=== PATIENT | male | born 2000 | race Caucasian/White ===

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

== ENCOUNTER 2020-05-15 21:59 | Emergency (ER) | payer SELFPAY ==
[2020-05-15 22:00] VITALS: BP 125/82; PULSE 64; RESP 16; TEMP 36.9; O2SAT 97; BMI 25.0
--- NOTE | 2020-05-15 22:22 | HMH.EDEYEP ---
ED Disposition Clinical Impression: Penetrating eye injury of left eye Qualifiers: Encounter type: initial encounter Qualified Code(s): S05.62XA - Penetrating wound without foreign body of left eyeball, initial encounter Disposition: Xfer Short-Term Hosp Condition on Discharge: Good Instructions: DI for Eye Pain Additional Instructions: go to now and remain npo Referrals: Jag Tejeda MD [Primary Care Provider] - - Critical Care Critical Care Time: No Attestation: On 05/15/20, the high probability of a clinically significant, sudden or life threatening deterioration of the following system(s) required my full and direct attention, intervention and personal management. The time I documented below is in addition to time spent performing reported procedures but includes the following listed in this critical care notation. Medical Decision Making - Medical Records Medical records reviewed: Yes: I reviewed the patient's medical records. - Quentin Inquiry Pt receiving controlled substance: No Vital Signs: 05/15/20 22:00 05/15/20 22:44 Temperature 98.4 F Temperature Source Oral Pulse Rate [Left Radial] 64 66 Respiratory Rate 16 18 Blood Pressure [Right Arm] 125/82 129/79 Blood Pressure Mean [Right Arm] 96 95 Blood Pressure Source [Right Arm] Automatic Cuff Blood Pressure Position [Right Arm] Sitting 02 Sat by Pulse Oximetry 97 99 Oxygen Delivery Method Room Air Room Air Orders (Tests/Meds): ED MEDICATIONS Discontinued Medications Generic Name Dose Route Start Last Admin Trade Name Freq PRN Reason Stop Dose Admin Tetracaine HCl 0 ml 05/15/20 23:16 05/15/20 23:17 Tetracaine 0.5% Ophth Solution 15ml OP 05/15/20 23:17 3 drop ONCE ONE Administration ORDERS Category Date Time Status CT orbit BI wo con Stat Cat Scan 05/15/20 22:57 Taken Orbit XR left [XR orbit bilateral min 4V] Stat Exams 05/15/20 22:24 Taken - Radiology Data #1 Image(s): Other (orbit-fb ) Image Reviewed: Yes I reviewed the patient's radiology image Preliminary Findings: Abnormal (possible fb ) - CT Data CT Scan: Other (orbit) Time Received: 00:[address] Reviewed: Yes: I have viewed the radiologist's interpretation Preliminary Findings: Abnormal (penetration fb lt eye) - Physician Consults Physician Consulted: - optho- dr rodrigues Reason -: Transfer to another facilty Eye Problem HPI - General Chief complaint: Eye Problems Stated complaint: AO 0630 @home FB(Metal) in L Eye Time Seen by Provider: 05/15/20 22:23 Mode of Arrival: Ambulatory Source of Information: Patient, Medical Record Limitations: No Limitations Description of Symptoms (Recalled from ER Triage Doc. by RN): pt stated he was working on a mower and thinks a metal flake fell in his eye. - History of Present Illness HPI Narrative: working at home and fb flew into lt eye - no goggles - no sig pain but blurred vision and feels like he can see drops - no contacts and healthy - concerned about fb - MD chief complaint: foreign body Onset (ago): hour(s) Onset description: sudden Duration: constant Location: left eye Eye Symptoms: foreign body sensation, blurry vision Place: home Mechanism: occurred while hammering/grinding Severity: moderate Associated symptoms: none Treatments Prior to Arrival: none - Related Data Patient tetanus UTD: Yes Home Medications Medication Instructions Recorded Confirmed No Known Home Medications 12/29/17 12/29/17 Allergies Allergy/AdvReac Type Severity Reaction Status Date / Time cefprozil [From CEFZIL] Allergy Unknown Verified 01/04/18 11:08 [facility] History - Hepatitis A Screen Drug use history?: No High risk sexual behaviors?: No History of sexually transmitted infection?: No Currently employed?: No Childcare worker?: No Do you have indoor plumbing?: Yes Do you have electricity?: Yes Attestation statement:: This patient has been screened for Hepatitis A risk facto
--- NOTE | 2020-05-15 22:24 | XR_ITS ---
PROCEDURE: XR ORBIT BILATERAL MIN 4V CLINICAL INDICATION: possible fb Foreign body evaluation, metal fragments COMPARISON: CT ORBIT BI WO CON from 05/15/2020 FINDINGS: On the right side there 3 small areas of increased density suspicious for metallic fragments the largest measuring nearly 3 mm. On the left side there is a small metallic fragment noted in the medial aspect of the orbital area measuring 1-2 mm. There is mild mucosal thickening of the maxillary sinuses IMPRESSION: Bilateral ocular metallic fragments Dictated by: Dwayne Knox MD 05/16/2020 07:50 Electronically signed by Dwayne Knox MD in [place] 05/16/2020 07:50
--- NOTE | 2020-05-15 22:28 | PC.NURSE ---
spoke with Dr. Degroot
[2020-05-15 22:44] VITALS: BP 129/79; PULSE 66; RESP 18; O2SAT 99
--- NOTE | 2020-05-15 22:57 | CT_ITS ---
PROCEDURE: CT ORBIT BI WO CON CLINICAL HISTORY: foreign body left eye Foreign body evaluation, injury with pain, metal fragment in, check position of metal fragment COMPARISON: No exams were available for comparison TECHNIQUE: Axial images obtained with sagittal and coronal reformats. All CT scans at the facility use one or more dose reduction, viz: automated exposure control, ma/kV adjustment per patient size (including targeted exams where dose is matched to indication, i.e. head), or iterative reconstruction technique. FINDINGS: There is a 2 mm calcific density at the medial margin of the preseptal soft tissues of the right orbit which may be related to prior trauma or inflammatory process or foreign body.. There is a 3 mm metallic foreign body located in the posterior chamber of the left ocular globe with trace amount of intra ocular air in the anterior superior aspect of the posterior chamber consistent with patient's history of acute penetrating trauma. There is slight heterogeneous density across the ocular globes on both sides which may be related to streak artifact without definite evidence of the tree is hemorrhage. No hyphema. Good position of the lens. Mucosal thickening involves the ethmoid sinuses and mild mucosal thickening involves the maxillary sinuses. IMPRESSION: Small right a metallic foreign body in the posterior chamber of the left ocular globe at 3 mm with a small amount air in the posterior chamber consistent with history of acute penetrating injury. Please see above for detail Dictated by: Dwayne Knox MD 05/16/2020 08:23 Electronically signed by Dwayne Knox MD in [place] 05/16/2020 08:23
--- NOTE | 2020-05-15 23:56 | PC.NURSE ---
speaking with ophthalmology at
--- NOTE | 2020-05-15 23:57 | PC.NURSE ---
pt accepted to [facility]
[2020-05-16 00:05] VITALS: BP 147/99; PULSE 66; RESP 16; O2SAT 98
[2020-05-16 00:12] VITALS: BP 147/101; PULSE 66; RESP 16; TEMP 36.9; O2SAT 100
== END 2020-05-16 00:15 | disposition short-term general hospital (02) ==
PROVIDERS: Emergency Provider Emergency Medicine; PCP Internal Medicine Adolescent Medicine
DX: S05.62XA Penetrating wound without foreign body of left eyeball, initial encounter (principal); W45.8XXA Other foreign body or object entering through skin, initial encounter; W27.8XXA Contact with other nonpowered hand tool, initial encounter; Y92.73 Farm field as the place of occurrence of the external cause; F17.210 Nicotine dependence, cigarettes, uncomplicated; Z88.1 Allergy status to other antibiotic agents; Z90.09 Acquired absence of other part of head and neck
CPT/HCPCS: 70200; 70480; 99284

== ENCOUNTER 2020-05-23 02:01 | Emergency (ER) | payer MEDICAID, SELFPAY ==
[2020-05-23 02:13] VITALS: BP 126/84; PULSE 60; RESP 16; TEMP 36.8; O2SAT 100; BMI 20.9
[2020-05-23 02:39] VITALS: BP 119/77; PULSE 64; RESP 16; O2SAT 99
[2020-05-23 03:31] VITALS: BP 0/0; PULSE 0; RESP 0; TEMP -17.7; TEMP 0; O2SAT 0
== END 2020-05-23 03:33 | disposition left against medical advice (07) ==
LOC: ER 02:05
PROVIDERS: Emergency Provider Emergency Medicine; PCP Internal Medicine Adolescent Medicine
DX: Z53.21 Procedure and treatment not carried out due to patient leaving prior to being seen by health care provider (principal); H57.12 Ocular pain, left eye
CPT/HCPCS: 99211

== ENCOUNTER 2021-09-04 14:16 | Emergency (ER) | payer MEDICAID, SELFPAY ==
[2021-09-04 15:51] VITALS: BP 0/0; PULSE 0; RESP 0; TEMP -17.7; TEMP 0
== END 2021-09-04 15:52 | disposition left against medical advice (07) ==
LOC: UTC 14:24
PROVIDERS: Emergency Provider Nurse Practitioner; PCP Internal Medicine Adolescent Medicine
DX: Z53.21 Procedure and treatment not carried out due to patient leaving prior to being seen by health care provider (principal)

== ENCOUNTER 2021-09-04 21:19 | Emergency (ER) | payer SELFPAY ==
[2021-09-04 21:20] VITALS: BP 144/92; PULSE 108; RESP 16; TEMP 38.1; O2SAT 98; BMI 25.0
--- NOTE | 2021-09-04 21:39 | CT_ITS ---
PROCEDURE INFORMATION: Exam: CT Chest With Contrast; Diagnostic Exam date and time: 09/04/2021 9:39 PM Age: 21 years old Clinical indication: Pain; Patient HX: Air bag deployed while working on car 5 days ago; Additional info: A/o TECHNIQUE: Imaging protocol: Diagnostic computed tomography of the chest with contrast. 3D rendering (Not supervised by radiologist): MIP and/or 3D reconstructed images were created by the technologist. Radiation optimization: All CT scans at this facility use at least one of these dose optimization techniques: automated exposure control; mA and/or kV adjustment per patient size (includes targeted exams where dose is matched to clinical indication); or iterative reconstruction. Contrast material: ISOVUE; Contrast volume: 75 ml; Contrast route: IV; COMPARISON: CT CERVICAL SPINE WO CON 09/04/2021 9:58 PM FINDINGS: Lungs: Unremarkable. No consolidation. No masses. Pleural spaces: Unremarkable. No pneumothorax. No pleural effusion. Heart: Unremarkable. No cardiomegaly. No pericardial effusion. Aorta: Unremarkable. No aortic aneurysm. Lymph nodes: Unremarkable. No enlarged lymph nodes. Bones/joints: Unremarkable. No acute fracture. Soft tissues: Unremarkable. IMPRESSION: No acute intrathoracic organ injury.
--- NOTE | 2021-09-04 21:39 | CT_ITS ---
PROCEDURE INFORMATION: Exam: CT Cervical Spine Without Contrast Exam date and time: 09/04/2021 9:39 PM Age: 21 years old Clinical indication: Pain; Patient HX: Air bag deployed while working on car 5 days ago; Additional info: A/o TECHNIQUE: Imaging protocol: Computed tomography images of the cervical spine without contrast. Radiation optimization: All CT scans at this facility use at least one of these dose optimization techniques: automated exposure control; mA and/or kV adjustment per patient size (includes targeted exams where dose is matched to clinical indication); or iterative reconstruction. COMPARISON: CT ORBIT BI WO CON 05/15/2020 11:00 PM FINDINGS: Bones/joints: No acute fracture. Normal alignment Discs/Spinal canal/Neural foramina: Mild endplate degenerative changes. Chronic mild compression deformities of the C7 and T1 endplates. Disc spaces are otherwise unremarkable. Facet joints are unremarkable. Lungs: Lung apices are normal. Soft tissues: Unremarkable. IMPRESSION: No fracture or malalignment.
--- NOTE | 2021-09-04 21:39 | CT_ITS ---
PROCEDURE INFORMATION: Exam: CT Head Without Contrast Exam date and time: 09/04/2021 9:39 PM Age: 21 years old Clinical indication: Other: Airbag deploy; Patient HX: Air bag deployed while working on car 5 days ago; Additional info: A/o TECHNIQUE: Imaging protocol: Computed tomography of the head without contrast. Radiation optimization: All CT scans at this facility use at least one of these dose optimization techniques: automated exposure control; mA and/or kV adjustment per patient size (includes targeted exams where dose is matched to clinical indication); or iterative reconstruction. COMPARISON: CT ORBIT BI WO CON 05/15/2020 11:00 PM FINDINGS: Brain: Unremarkable. No hemorrhage or acute infarction. Unremarkable white matter. No midline shift or mass effect. Cerebral ventricles: No ventriculomegaly. Paranasal sinuses: Visualized sinuses are clear. Mastoid air cells: Mastoid air cells are clear. Bones/joints: Unremarkable. No acute fracture. Soft tissues: Unremarkable. IMPRESSION: No acute intracranial abnormality.
--- NOTE | 2021-09-04 21:40 | PC.NURSE ---
applied cervical collar
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
[2021-09-04 21:57] LABS: Basophils # 0.1 K/mm3 (0-0.2); Basophils % 0.4 % (0.1-2.0); Eosinophils # 0.1 K/mm3 (0.0-0.4); Eosinophils % 0.6 % (0.1-12.0); Hematocrit 47.9 % (42.0-52.0); Hemoglobin 15.7 g/dL (14.1-18.0); Lymphocytes # 1.6 K/mm3 (0.7-4.5); Lymphocytes % 9.2 % (10-50); Mean Corpuscular HGB Conc 32.7 g/dL (31.8-35.4); Mean Corpuscular Hemoglobin 31.4 pg (27.0-31.2); Mean Corpuscular Volume 96.1 fl (80-94); Mean Platelet Volume 7.6 fl (7.4-10.4); Monocytes # 1.4 K/mm3 (0.1-1.0); Neutrophils # 14.2 K/mm3 (1.8-7.8); Neutrophils % 81.9 % (37.0-80.0); Platelet Count 251 K/mm3 (142-424); Red Blood Count 4.99 M/mm3 (4.60-6.20); Red Cell Distribution Width 12.1 % (11.5-17.5); White Blood Count 17.3 K/mm3 (4.8-10.8)
--- NOTE | 2021-09-04 22:05 | PC.NURSE ---
pt to ct
[2021-09-04 22:06] LABS: Alanine Aminotransferase 17 U/L (12-78); Albumin Level 4.9 g/dl (3.5-5.0); Albumin/Globulin Ratio 1.5 (1.1-1.8); Alkaline Phosphatase 83 U/L (38-126); Anion Gap 12.6 mEq/L (5-15); Aspartate Amino Transferase 23 U/L (17-59); Bilirubin,Total 0.9 mg/dl (0.2-1.3); Blood Urea Nitrogen 7 mg/dl (9-20); Calcium 9.6 mg/dl (8.4-10.2); Carbon Dioxide 28 mmol/L (22.0-30.0); Chloride 100 mmol/L (98-107); Creatinine Clearance Estimated 171 mL/min (50-200); Estimated Glomerular Filt Rate 142 ml/min (>60); GFR (African American) 172 ML/MIN (>60); Globulin 3.3 g/dL (1.3-3.2); Glucose 110 mg/dl (74-100); Potassium 3.6 mmoL/L (3.5-5.1); Sodium 137 mmol/L (136-145); Total Protein,Serum 8.2 g/dl (6.3-8.2)
[2021-09-04 22:11] LABS: C-Reactive Protein 33.8 mg/L (0-4)
[2021-09-04 22:25] LABS: Procalcitonin 0.072 ng/mL (0.0-2.0)
[2021-09-04 22:30] LABS: MANUAL DIFFERENTIAL MANUAL DIFFERENTIAL (MANUAL DIFF)
[2021-09-04 22:48] LABS: Lymphocytes % 9 % (10-50); Monocytes % 8 % (2-9); Neutrophils % 83 % (42-76); Platelet Estimate Normal; RBC Morphology Normal; Total Cells Counted 100
[2021-09-04 22:58] LABS: Erythrocyte Sedimentation Rate 10 mm/hr (0-15)
--- NOTE | 2021-09-04 23:37 | PC.NURSE ---
Dr. Joseph s/w Dr. Tejeda, asked for blood cx to be drawn and ok to d/c
[2021-09-04 23:39] VITALS: BP 134/85; PULSE 97; RESP 16; TEMP 36.7; O2SAT 98
== END 2021-09-04 23:41 | disposition home or self-care (01) ==
PROVIDERS: Emergency Provider Emergency Medicine; PCP Internal Medicine Adolescent Medicine
DX: S06.0X0A Concussion without loss of consciousness, initial encounter (principal); V89.0XXA Person injured in unspecified motor-vehicle accident, nontraffic, initial encounter; Y92.488 Other paved roadways as the place of occurrence of the external cause; F17.210 Nicotine dependence, cigarettes, uncomplicated
CPT/HCPCS: 70450; 71260; 72125; 80053; 84145; 85007; 85025; 85651; 86140; 87040; 96374; 99282; J2405; Q9967

== ENCOUNTER 2022-08-05 13:53 | Emergency (ER) | payer SELFPAY ==
[2022-08-05 14:04] VITALS: BP 135/84; PULSE 86; RESP 15; TEMP 36.9; O2SAT 97; O2SAT 98; BMI 24.3
[2022-08-05 14:30] VITALS: BP 118/74; PULSE 76; O2SAT 96
--- NOTE | 2022-08-05 15:05 | HMH.EDGENADL ---
Discharge Plan Disposition Patient Disposition: Home, Self-Care Condition: Good Prescriptions Prescriptions: New penicillin V potassium 500 mg tablet 500 mg PO QID Qty: 20 0RF No Action ondansetron HCl 4 MG tablet 4 mg PO TID Qty: 21 0RF Referrals Follow up/Referrals: Jag Tejeda MD [Primary Care Provider] - See instructions Activity Restrictions/Add. Instructions Additional Instructions/Restrictions: Take penicillin as prescribed. Return to the emergency department if any swelling, redness, pus drainage from lip or if any fever. Clinical Impressions Clinical Impression: Laceration of lip Qualifiers: Encounter type: initial encounter Qualified Code(s): S01.511A - Laceration without foreign body of lip, initial encounter Instructions Patient Instructions: DI for Laceration Repair Discharge ED Provider: Ralph Burt General Adult HPI General Chief complaint: Wound/Laceration Stated complaint: AO Bar hit mouth @work 08/05/22 Time Seen by Provider: 08/05/22 14:39 Mode of Arrival: Ambulatory Source of Information: Patient Limitations: No Limitations Description of Symptoms (Recalled from ER Triage Doc. by RN): Pt presents with lac inner and outer right side of top lip. States that he was changing a tractor tire and the bar come up and hit him in the lip. No noticeable chipped teeth. History of Present Illness HPI narrative: Patient was changing with tractor tire and a board came up and hit him in the right upper lip. He has a laceration externally right upper lip and also internally. None of these teeth feel chipped or loose or painful. Last tetanus immunization is unknown. He says that he got stitches about a year ago, initially was seen here for an injury to his eye and sent to [facility]. He does not know whether he received a tetanus immunization at either of the institutions. Related Data Previous Rx's Medication Instructions Recorded ondansetron HCl 4 mg tablet 4 mg PO TID nausea #21 tabs 09/04/21 penicillin V potassium 500 mg 500 mg PO QID #20 tabs 08/05/22 tablet Allergies Allergy/AdvReac Type Severity Reaction Status Date / Time cefprozil [From CEFZIL] Allergy Unknown Verified 01/04/18 11:08 [facility] Social History Smoking Status: Current every day smoker tobacco type: cigarettes packs per day: 1 and smokeless tobacco alcohol intake: never current occupational status: employed Travel in the last 8 weeks: None current occupation: Student ROS Obtained: Yes Systems reviewed as appropriate & no additional complaints except as documented ENT Ears, Nose, Mouth, and Throat: Reports as per HPI, Denies dental pain and Denies dysphagia Gastrointestinal Gastrointestingal: Denies dysphagia Physical Exam General General appearance: alert and in no apparent distress Head Head exam: atraumatic and normocephalic Expanded ENT Exam Nose/Mouth Image: 1. 2 cm linear laceration. Comment: 1.5 cm laceration on oral mucosa of the inner aspect of right upper lip. Well approximated. It does not extend through and through to the external laceration. The full depth of the external laceration can be probed and is only approximately 1/4 inch deep. No foreign bodies or contamination in either 1. There is some ecchymosis and minimal superficial lacerations at the gingiva of tooth #6. The tooth is nontender and is not loose. No broken or chipped teeth seen. Neck Neck exam: Present normal inspection and full ROM; Absent tenderness Respiratory Respiratory exam: Absent respiratory distress Cardiovascular Cardiovascular exam: Present regular rate Neurological Exam Neurological exam: Present alert, oriented X3 and CN II-XII intact Skin Skin exam: Present warm and dry Medical Decision Making Quentin Inquiry Pt receiving controlled substance: No Vital Signs: 08/05/22 14:04 Temperature 98.4 F Temperature Source Oral Pulse Rate [Right Radial] 86 Respira
[2022-08-05 15:34] VITALS: BP 131/79; PULSE 83; RESP 15; TEMP 36.8; O2SAT 99
== END 2022-08-05 15:37 | disposition home or self-care (01) ==
PROVIDERS: Emergency Provider Emergency Medicine; PCP Internal Medicine Adolescent Medicine
DX: S01.511A Laceration without foreign body of lip, initial encounter (principal); W27.8XXA Contact with other nonpowered hand tool, initial encounter; Z23 Encounter for immunization
CPT/HCPCS: 90471; 90715; 99213; G0463

== ENCOUNTER 2023-12-11 12:54 | Emergency (ER) | payer SELFPAY ==
[2023-12-11 12:56] VITALS: BP 132/92; PULSE 70; RESP 18; TEMP 36.7; O2SAT 100; BMI 25.1
[2023-12-11 13:30] VITALS: BP 134/91; PULSE 68; O2SAT 99
--- NOTE | 2023-12-11 13:42 | ED_ITS ---
Discharge Plan Disposition Patient Disposition: Home, Self-Care Prescriptions Prescriptions: New levofloxacin 750 mg tablet 750 mg PO DAILY 7 Days Qty: 7 0RF No Action ondansetron HCl 4 MG tablet 4 mg PO TID Qty: 21 0RF penicillin V potassium 500 mg tablet 500 mg PO QID Qty: 20 0RF Referrals Follow up/Referrals: Jag Tejeda MD [Primary Care Provider] - See instructions Activity Restrictions/Add. Instructions Additional Instructions/Restrictions: Call your family doctor to establish care for this visit to the emergency department and schedule follow-up within 48 hours to ensure improvement. If you have any worsening of your condition or any other concerning signs or symptoms, return to the emergency department or your primary care doctor for further evaluation. Take levofloxacin once daily for 7 days. Clinical Impressions Clinical Impression: Laceration of right ear Instructions Patient Instructions: DI for Laceration Repair Discharge ED Provider: [facility] Adult HPI General Chief complaint: Wound/Laceration Stated complaint: AO laceration to right ear Time Seen by Provider: 12/11/23 12:58 Mode of Arrival: Ambulatory Source of Information: Patient Limitations: No Limitations Description of Symptoms (Recalled from ER Triage Doc. by RN): Patient states that a tire bar hit him on the right side of his head causing a laceration to his right ear. Denies LOC. History of Present Illness HPI narrative: Otherwise healthy 23-year-old male last vaccinated for tetanus 2 years ago presenting with ear laceration. Patient states that he was working outside when changing a tire. Part of a tractor swung around and hit him in the ear, lacerating his ear. He came immediately to the emergency department for further evaluation after family cleaned his wound. No loss of consciousness or any other trauma Related Data Previous Rx's Medication Instructions Recorded ondansetron HCl 4 mg tablet 4 mg PO TID nausea #21 tabs 09/04/21 penicillin V potassium 500 mg 500 mg PO QID #20 tabs 08/05/22 tablet levofloxacin 750 mg tablet 750 mg PO DAILY 7 days #7 tabs 12/11/23 Allergies Allergy/AdvReac Type Severity Reaction Status Date / Time cefprozil [From CEFZIL] Allergy Unknown Verified 01/04/18 11:08 [facility] Disclaimer: The information contained in this section may have been updated after the patient was seen, as this information can be updated by other users. Social History Smoking Status: Current every day smoker tobacco type: cigarettes packs per day: 1 and smokeless tobacco alcohol intake: never current occupational status: employed Travel in the last 8 weeks: None current occupation: Student ROS Obtained: Yes All systems reviewed & no additional complaints except as documented Physical Exam General General appearance: alert and in no apparent distress Head Head exam: atraumatic and normocephalic Eye Eye exam: Present normal appearance, PERRL and EOMI ENT ENT exam: Present mucous membranes moist and other (Crush injury and superficial skin tear posterior aspect of pinna right ear. No obvious laceration. No obvious involvement of cartilage. No auricular hematoma present) Neck Neck exam: Present normal inspection, full ROM and trachea midline Respiratory Respiratory exam: Absent respiratory distress, wheezes, stridor, accessory muscle use or prolonged expiratory phase Cardiovascular Cardiovascular exam: Present normal rhythm Abdominal Exam Abdominal exam: Present soft; Absent distention, tenderness, guarding, rebound or rigidity Extremities Exam Extremities exam: Absent edema Neurological Exam Neurological exam: Present alert, oriented X3, CN II-XII intact and normal gait; Absent motor sensory deficit Skin Skin exam: Present warm and dry; Absent diaphoresis or erythema Medical Decision Making Medical Records Medical records reviewed: Yes I reviewed the patient's medical records. Quentin Inquiry Pt receiving controlled substance: No Quentin was queried for this patient: No Vital Signs: 12/11/23 12:56 Temperature 98.1 F Temperature Source Oral Pulse Rate [Radial] 70 Respiratory Rate 18 Blood Pressure [Right Arm] 132/92 H Blood Pressure Mean [Right Arm] 105 Blood Pressure Source [Right Arm] Automatic Cuff Blood Pressure Position [Right Arm] Sitting 02 Sat by Pulse Oximetry 100 Oxygen Delivery Method Room Air Orders (Tests/Meds): ED MEDICATIONS Discontinued Medications Generic Name Dose Route Start Last Admin Trade Name Freq PRN Reason Stop Dose Admin Lidocaine HCl 10 ml 12/11/23 13:32 Lidocaine 1% 10ml Mdv SQ 12/11/23 13:33 ONCE ONE Medical Decision Narrative: Otherwise healthy 23-year-old male last vaccinated for tetanus 2 years ago presenting with ear laceration. Patient states that he was working outside when changing a tire. Part of a tractor swung around and hit him in the ear, lacerating his ear. He came immediately to the emergency department for further evaluation after family cleaned his wound. No loss of consciousness or any other trauma. History was obtained via conversation with patient and family. On arrival, patient hemodynamically stable, alert, oriented x4, appropriate, GCS 15, moving all extremities spontaneously, pupils equal and reactive to light. Full physical exam performed and significant for well-appearing male no acute distress. Skin tear and crush injury of right pinna, but no evidence of laceration or cartilage involvement. No periauricular hematoma. Differential includes skin tear, laceration, among others Patient was given lidocaine, wound evaluation for symptomatic management and correction of underlying abnormalities. Given patient presentation, workup, history, this most likely represents uncomplicated laceration right ear. Because patient at baseline without signs or symptoms of clinical decompensation, deemed appropriate for discharge. Results were relayed to patient who voiced understanding and were agreeable to outpatient management and follow up. At the time of discharge the patient was hemodynamically stable, tolerating PO, and mobilizing appropriately. Levaquin for home-going Procedures Laceration Laceration 1: Site: other (ear) Side (If applicable): right Size (cm): 0.5 Description: linear Depth: simple, single layer Local Anesthetic: lidocaine 1% Amount of anesthesia used (mL): 5 Pre-repair: wound explored and irrigated extensively Skin layer closed with: other (plain gut) Size (cm): 5-0 Number of sutures: 4 Critical Care Critical Care Time Critical Care Time: No
[2023-12-11] MEDS: LIDOCAINE 1% 10ML MDV 10 ML SQ (14:08)
[2023-12-11 14:20] VITALS: BP 140/95; PULSE 72; RESP 16; TEMP 36.7; O2SAT 99
== END 2023-12-11 14:21 | disposition home or self-care (01) ==
PROVIDERS: Emergency Provider Emergency Medicine; PCP Internal Medicine Adolescent Medicine
DX: S01.311A Laceration without foreign body of right ear, initial encounter (principal); F17.210 Nicotine dependence, cigarettes, uncomplicated; W22.8XXA Striking against or struck by other objects, initial encounter
CPT/HCPCS: 12011; 99282

== ENCOUNTER 2024-05-31 07:18 | Day surgery (SDC) | payer SELFPAY ==
[2024-05-31] VITALS (12 sets, daily range): BP systolic 109–147; BP diastolic 61–88; PULSE 67–89; RESP 14–19; TEMP 36.7–37.3; O2SAT 91–100; BMI 24.5
--- NOTE | 2024-05-31 07:29 | CT_ITS ---
FINAL REPORT TECHNIQUE: Thin section axial images were obtained through the abdomen after intravenous contrast. Reconstruction images were obtained from the axial data. Exam was performed using dose reduction techniques. CLINICAL HISTORY: RLQ pain FINDINGS: The lung bases are clear. The liver is homogeneous. The gallbladder is present. The spleen, adrenal glands, and pancreas are unremarkable. There is no hydronephrosis or solid renal mass. Abdominal GI tract is without acute abnormality. There is no abdominal lymphadenopathy or ascites. The appendix is dilated measuring up to 12 mm. There is periappendiceal inflammation. No perforation is identified. The remaining GI tract is unremarkable.. There is a small amount of pelvic free fluid, likely reactive. No acute osseous abnormalities identified. IMPRESSION: Findings consistent with appendicitis. Reviewed, Interpreted and Dictated by Saundra Nolan MD Transcribed by Theresa Nam Authenticated and [facility]
[2024-05-31 07:30] LABS: Microscopic, Urine URINE MICROSCOPIC (MICROSCOPIC)
--- NOTE | 2024-05-31 07:40 | ED_ITS ---
Discharge Plan Disposition Patient Disposition: Admitted Condition: Fair Chief Complaint: Abdominal Pain Prescriptions Prescriptions: No Action No Known Home Medications Referrals Follow up/Referrals: Isidro Hugo MD [Primary Care Provider] - See instructions Clinical Impressions Clinical Impression: Appendicitis, Right lower quadrant pain Instructions Patient Instructions: DI for Acute Abdominal Pain Discharge ED Provider: Arnav Cruz General Adult HPI General Chief complaint: Abdominal Pain Stated complaint: right lower side pain, vomiting Time Seen by Provider: 05/31/24 07:29 History of Present Illness HPI narrative: 24-year-old male with no pertinent past medical history presents today for evaluation concerning right lower quadrant abdominal pain that has been present over the past day. Pain worsened around 5 AM this morning. Patient also had episodes of N/V. He denies having any fevers, chills, chest pain or shortness of breath. Denies any diarrhea or constipation. He does still have his appendix. He has no further complaints at this time. Related Data Home Medications Medication Instructions Recorded Confirmed No Known Home Medications 05/31/24 05/31/24 Allergies Allergy/AdvReac Type Severity Reaction Status Date / Time cefprozil [From CEFZIL] Allergy Unknown Verified 01/04/18 11:08 [facility] Disclaimer: The information contained in this section may have been updated after the patient was seen, as this information can be updated by other users. Social History Smoking Status: Never smoker alcohol intake: never current occupational status: employed Travel in the last 8 weeks: None current occupation: Student ROS Obtained: Yes All systems reviewed & no additional complaints except as documented Physical Exam General General appearance: alert and in no apparent distress Head Head exam: atraumatic and normocephalic Eye Eye exam: Present normal appearance, PERRL and EOMI ENT ENT exam: Present normal oropharynx and mucous membranes moist Neck Neck exam: Present full ROM; Absent meningismus Respiratory Respiratory exam: Absent respiratory distress, wheezes, stridor or accessory muscle use Cardiovascular Cardiovascular exam: Present normal rhythm Abdominal Exam Abdominal exam: Present soft, tenderness and Rovsing's sign; Absent distention, guarding, rebound or rigidity Abdominal tenderness: Present RLQ Neurological Exam Neurological exam: Present alert, oriented X3 and CN II-XII intact; Absent motor sensory deficit Psychiatric Psychiatric exam: Present normal affect and normal mood Skin Skin exam: Present warm and dry Medical Decision Making Medical Records Medical records reviewed: Yes I reviewed the patient's medical records. Quentin Inquiry Pt receiving controlled substance: No Quentin was queried for this patient: No Vital Signs: 05/31/24 07:20 05/31/24 08:32 05/31/24 09:00 Temperature 99.1 F Temperature Source Oral Pulse Rate 83 89 Pulse Rate [Left Radial] 79 Respiratory Rate 14 Blood Pressure 111/61 126/82 Blood Pressure [Right Arm] 147/88 H Blood Pressure Mean [Right Arm] 107 02 Sat by Pulse Oximetry 98 98 100 Oxygen Delivery Method Room Air Room Air Lab Data Lab Results 05/31/24 07:23: Urine Color Yellow, Urine Appearance Clear, Urine pH 6.0, Ur Specific Mingus >= 1.030, Urine Protein Negative, Urine Glucose (UA) Negative, Urine Ketones Negative, Urine Blood Trace-i, Urine Nitrate Negative, Urine Bilirubin Negative, Urine Urobilinogen 1.0, Ur Leukocyte Esterase Negative, Urine RBC 3-5, Urine WBC 3-5, Ur Squamous Epith Cells 3-5, Urine Bacteria Trace 05/31/24 07:38: WBC 23.9 H*, RBC 4.59 L, Hgb 14.7, Hct 43.4, MCV 94.4 H, MCH 32.1 H, MCHC 34.0, RDW 13.5, Plt Count 246, MPV 8.3, Neut % (Auto) 85.4 H, Lymph % (Auto) 6.2 L, Placer % (Auto) 6.8, Eos % (Auto) 1.4, Baso % (Auto) 0.3, Neut # (Auto) 20.4 H, Lymph # (Auto) 1.5, Placer # (Auto) 1.6 H, Eos # (Auto) 0.3, Baso # (Auto) 0.1, Total Counted 100, Neutrophils % (Manual) 85 H, Lymphocytes % (Manual) 7 L, Monocytes % (Manual) 8, Platelet Estimate Normal, RBC Morphology Normal, Sodium 140, Potassium 3.4 L, Chloride 107, Carbon Dioxide 29, Anion Gap 7.4, BUN 14, Creatinine 0.80, Estimated Creat Clear 143, Estimated GFR 119, Est GFR ( Amer) 144, Glucose 92, Lactate 0.8, Calcium 9.4, Total Bilirubin 0.6, AST 26, ALT 32, Alkaline Phosphatase 66, Total Protein 7.2, Albumin 4.4, Globulin 2.8, Albumin/Globulin Ratio 1.6, Lipase 68 05/31/24 07:38 05/31/24 07:38 Orders (Tests/Meds): ED MEDICATIONS Discontinued Medications Generic Name Dose Route Start Last Admin Trade Name Chary PRN Reason Stop Dose Admin Lactated Ringer's 1,000 mls @ 999 mls/hr 05/31/24 07:29 05/31/24 07:42 Lactated Ringer's 1000 Ml Bag IV 05/31/24 08:29 999 mls/hr .Q1H1M ONE Administration Iopamidol 75 ml 05/31/24 08:01 05/31/24 08:02 Iopamidol-370 (76%);100ml Bottle IV 05/31/24 08:02 75 ml ONCE ONE Administration Morphine Sulfate 4 mg 05/31/24 07:29 05/31/24 07:43 Morphine 4mg/Ml Syringe IV 05/31/24 07:30 4 mg ONCE ONE Administration Ondansetron HCl 4 mg 05/31/24 07:29 05/31/24 07:43 Ondansetron 4mg/2ml Vial IV 05/31/24 07:30 4 mg ONCE ONE Administration Sodium Chloride 10 ml 05/31/24 08:01 05/31/24 08:02 Sodium Chloride 0.9% 10ml Syr (Rad Only) IV 05/31/24 08:02 10 ml ONCE ONE Administration ORDERS Category Date Time Status CT abdomen pelvis w con Stat Cat Scan 05/31/24 07:29 Taken CBC w/Auto Diff [Complete Blood Count Auto Diff] Stat Lab 05/31/24 07:38 Completed CMP [Comprehensive Metabolic Panel] Stat Lab 05/31/24 07:38 Completed Lactic Acid Stat Lab 05/31/24 07:38 Completed Lipase Stat Lab 05/31/24 07:38 Completed UA [Urinalysis and Microscopic] Stat Lab 05/31/24 07:23 Completed Medical Decision Narrative: 24-year-old male with no pertinent past medical history presents today for evaluation concerning right lower quadrant abdominal pain that has been present over the past day. Pain worsened around 5 AM this morning. Patient also had episodes of N/V. On assessment he was hemodynamically stable and in no acute distress. Afebrile. Chest clear to auscultation bilaterally. His abdomen was soft and nondistended however was tender in the right lower quadrant maximally. He also had a positive Rovsing sign. Differential diagnoses include not limited to acute appendicitis, mesenteric adenitis, constipation, gastroenteritis, colitis, among others. Patient was given IV morphine and Zofran to assist with his symptoms. He was also given a fluid bolus of LR. His labs today have been remarkable for a WBC of 23.9. Other labs were nonactionable. His CT scan did show findings consistent with appendicitis with dilated appendix measuring up to 12 mm. On reassessment he remains hemodynamically stable and in no acute distress. His pain is well-controlled at this time. I discussed ED workup and results as well as current plan to admit to general surgery for appendectomy. I did consult with Dr. Barnett in general surgery and discussed management and he has agreed to evaluate patient and admit. Critical Care Critical Care Time Critical Care Time: No
[2024-05-31] MEDS: LACTATED RINGERS 1000ML 1,000 ML 999 ML IV (07:42)
[2024-05-31] MEDS: MORPHINE 4MG/ML SYRINGE 4 MG IV (07:43)
[2024-05-31] MEDS: ONDANSETRON 4MG/2ML VIAL 4 MG IV (07:43)
[2024-05-31 07:46] LABS: Basophils # 0.1 K/mm3 (0-0.2); Basophils % 0.3 % (0.1-2.0); Eosinophils # 0.3 K/mm3 (0.0-0.4); Eosinophils % 1.4 % (0.1-12.0); Hematocrit 43.4 % (42.0-52.0); Hemoglobin 14.7 g/dL (14.1-18.0); Lymphocytes # 1.5 K/mm3 (0.7-4.5); Lymphocytes % 6.2 % (10-50); Mean Corpuscular Hemoglobin 32.1 pg (27.0-31.2); Mean Corpuscular Volume 94.4 fl (80-94); Mean Platelet Volume 8.3 fl (7.4-10.4); Monocytes # 1.6 K/mm3 (0.1-1.0); Monocytes % 6.8 % (1.7-9.3); Neutrophils # 20.4 K/mm3 (1.8-7.8); Neutrophils % 85.4 % (37.0-80.0); Platelet Count 246 K/mm3 (142-424); Red Blood Count 4.59 M/mm3 (4.60-6.20); Red Cell Distribution Width 13.5 % (11.5-17.5); White Blood Count 23.9 K/mm3 (4.8-10.8)
[2024-05-31 07:46] LABS: Appearance,Urine CLEAR (Clear); Bilirubin,Urine Negative (Negative); Blood, Urine TRACE-I (Negative); Color,Urine YELLOW (Yellow); Glucose,Urine (UA) Negative (Negative); Ketones,Urine Negative (Negative); Leukocyte Esterase,Urine Negative (Negative); Nitrate,Urine Negative (Negative); Protein,Urine Negative (Negative); Specific Gravity, Urine >= 1.030 (1.005-1.030)
[2024-05-31 07:52] LABS: MANUAL DIFFERENTIAL MANUAL DIFFERENTIAL (MANUAL DIFF)
[2024-05-31 07:55] LABS: Alanine Aminotransferase 32 U/L (12-78); Albumin Level 4.4 g/dl (3.5-5.0); Albumin/Globulin Ratio 1.6 (1.1-1.8); Alkaline Phosphatase 66 U/L (38-126); Anion Gap 7.4 mEq/L (5-15); Aspartate Amino Transferase 26 U/L (17-59); Bilirubin,Total 0.6 mg/dl (0.2-1.3); Blood Urea Nitrogen 14 mg/dl (9-20); Calcium 9.4 mg/dl (8.4-10.2); Carbon Dioxide 29 mmol/L (22.0-30.0); Chloride 107 mmol/L (98-107); Creatinine Clearance Estimated 143 mL/min (50-200); Estimated Glomerular Filt Rate 119 ml/min (>60); GFR (African American) 144 ML/MIN (>60); Globulin 2.8 g/dL (1.3-3.2); Glucose 92 mg/dl (74-100); Lipase 68 U/L (23-300); Potassium 3.4 mmoL/L (3.5-5.1); Sodium 140 mmol/L (136-145); Total Protein,Serum 7.2 g/dl (6.3-8.2)
[2024-05-31 07:56] LABS: Lactic Acid 0.8 mmol/L (0.7-2.1)
[2024-05-31] MEDS: SODIUM CHLORIDE 0.9% 10ML SYR (RAD ONLY) 10 ML IV (08:02)
[2024-05-31] MEDS: IOPAMIDOL-370 (76%);100ML BOTTLE 75 ML IV (08:02)
--- NOTE | 2024-05-31 08:20 | PC.NURSE ---
rounded on pt no needs at this time call light in reach
[2024-05-31 08:46] LABS: Bacteria,Urine Trace /lpf
[2024-05-31 08:49] LABS: Lymphocytes % 7 % (10-50); Monocytes % 8 % (2-9); Neutrophils % 85 % (42-76); Total Cells Counted 100
[2024-05-31 08:50] LABS: Platelet Estimate Normal; RBC Morphology Normal
--- NOTE | 2024-05-31 09:00 | PC.NURSE ---
talked to radiology, checking on scan reads
--- NOTE | 2024-05-31 09:40 | PC.NURSE ---
DR NAYLOR AT BEDSIDE TO UPDATE PT AND FAMILY
--- NOTE | 2024-05-31 09:59 | PC.NURSE ---
pt to surgery via wheelchair
[2024-05-31] MEDS: METRONIDAZ/SOD CHL 500 MG/100 ML PIGGYBACK 100 MG IV (10:30)
[2024-05-31] MEDS: LEVOFLOXACIN/D5W 500 MG/100 ML PIGGYBACK 100 MG IV (10:35)
[2024-05-31] MEDS: LIDOCAINE 1% 20ML MDV 20 ML (10:50)
--- NOTE | 2024-05-31 11:48 | EXP.ANES.CKL ---
[facility] Disclaimer: The information contained in this section may have been updated after the patient was seen, as this information can be updated by other users. Social History Smoking Status: Never smoker alcohol intake: never substance use type: denies use current occupational status: employed Travel in the last 8 weeks: None current occupation: Student [employer] Anesthesia Checklist Patient Identification Patient Identification: Arm Band Structural Data Admitted From: Emergency Dept Planned Operative Procedure/s: Laparoscopic Appendectomy Consent for Planned Operative Procedure(s) Verified: Yes Verified Documents: Surgical Consent and History and Physical NPO Status Verified Time NPO: 00:00 Additional verifications Anesthesia Reactions: No Airway Assessment Mallampati Score:: Class II C-Spine Mobility Assessed: Yes TMJ Mobility Assessed: Yes Dentition: Good Dentition Neurological Assessment Level of Consciousness: Awake, Alert and Appropriate Anesthesia Plan Anesthesia Risk discussed: Yes Anesthesia Plan: Verified ASA Class: II (e) Anesthesia Type: General
--- NOTE | 2024-05-31 11:49 | EXP.ANES.I ---
[facility] Anesthesia Record Part I Anesthesia Record I Intake, IV Amount: 1,100 Hydration: Adequate Estimated blood loss (mL): 10 Urine output (mL): 20 Blood Products used (#): none Blood Pressure: 122/77 SaO2: 91 Pulse Rate: 68 Airway Patency: Patent Respiratory Rate: 16 Temperature: 99.1 F Patient is:: Drowsy and Stable Stable to PACU at:: 11:45
--- NOTE | 2024-05-31 11:55 | P.OP_ITS ---
Date of procedure: 05/31/24 Pre-op Diagnosis:: Appendicitis Post-op Diagnosis:: Suppurative appendicitis Procedure performed:: Laparoscopic appendectomy Surgeon:: Obey Ramírez MD [employer] SPECIALIST:: Garcia Chapin and Kiesha Schwab Anesthesia: GETA Estimated blood loss (mL): 15 Operative findings:: Enlarged/inflamed appendix with patchy suppuration Operative note:: After informed consent was obtained the patient was taken to the operating room and placed in the supine position. General anesthesia was induced and his abdomen was prepped and draped in a sterile fashion. After infiltration with local anesthetic a supraumbilical incision was made. A Veress needle was placed in position. The abdomen was insufflated. A 12 mm optical trocar was placed in position. Under direct visualization a 5 mm trocar was placed in the suprapubic position and an additional 5 mm trocar was placed in the left lower quadrant. The appendix was carefully elevated. Inflammation and enlargement confirmed. Patchy suppuration was also noted. A combination of blunt dissection and harmonic deidre were utilized to create a window in the mesoappendix at the appendiceal base. The Endopath 45 stapling device was then used to transect the appendix at its base. The mesoappendix was taken with harmonic deider. The appendix was placed in a retrieval bag and removed through the supraumbilical trocar site. The right lower quadrant was thoroughly irrigated. No active bleeding or sign of injury was noted. No pockets of purulence were seen. Pneumoperitoneum was released as the trocars were removed. All wounds were irrigated. Fascia at the supraumbilical trocar site was reapproximated with 0 Ethibond. Skin was then closed with interrupted 4-0 Monocryl in a mattress fashion to facilitate hemostasis. Dressings were applied and the patient was transferred to recovery in stable condition. Condition: stable Disposition: PACU Specimens:: Appendix Complications:: No immediate
--- NOTE | 2024-05-31 12:37 | PC.NURSE ---
Umbilical dressing almost saturated with sanguinous drng. Removed dressing and replaced with tonsil sponge and telfa tegaderm using sterile technique. Pt tolerated well.
--- NOTE | 2024-05-31 12:37 | EXP.ANES.II ---
[facility] Anesthesia Record Part II Anesthesia Record Part II Discharge Time: 12:15 Destination: Surgical Day Care (OP Surgery) PACU nurse assessment reviewed?: Yes Patient Condition:: Good Anesthesia Complications:: None Swallowing reflex intact?: Yes Airway Patency: Patent Cyanosis?: No Blood Pressure: 125/66 SaO2: 96 Respiratory Rate: 16 Pulse Rate: 67 Temperature: 99.1 F Mental Status: Alert & Oriented Pain level:: 0 Nausea and/or vomitting:: None Intake, IV Amount: 0 Hydration: Adequate
== END 2024-05-31 12:50 | disposition home or self-care (01) ==
LOC: ER 09:49 → SDC 09:59
PROVIDERS: Emergency Provider Emergency Medicine; PCP Family Medicine; Visit Provider Surgery
PROC: 0DTJ4ZZ Resection of Appendix, Percutaneous Endoscopic Approach (ICD-10-PCS; CPT 44970; principal; 2024-05-31 11:00)
DX: R10.31 Right lower quadrant pain (principal); R11.10 Vomiting, unspecified; K35.80 Unspecified acute appendicitis
CPT/HCPCS: 44970; 74177; 80050; 80053; 81001; 83605; 83690; 85007; 85025; 96374; J3490; J1100; J1885; J1956; J2250; J2270; J2405; J3010; J7120; Q9967